=== PATIENT | male | born 1975 | race Caucasian/White ===

== ENCOUNTER 2024-08-03 06:20 | Day surgery (SDC) | payer OTHER, SELFPAY | END 2024-08-03 11:39 | disposition home or self-care (01) | LOC: GI 06:20 | PROVIDERS: ATTENDING PHYSICIAN Internal Medicine Gastroenterology | DX: Z12.11 Encounter for screening for malignant neoplasm of colon (principal); K62.5 Hemorrhage of anus and rectum; K64.8 Other hemorrhoids; K57.30 Diverticulosis of large intestine without perforation or abscess without bleeding | CPT/HCPCS: G0121 ==